=== PATIENT | female | born 1975 | race Caucasian/White ===

== ENCOUNTER 2018-06-30 18:09 | Emergency (ER) | payer SELFPAY ==
[~2018-06-30] VITALS: Ht 172.7 cm; Wt 80.0 kg
--- NOTE | 2018-06-30 18:43 | NUR ---
FIRST CONTACT WITH PT. PT SITTING UP IN [facility] NOTED. PT CO THROAT PAIN X SEVERAL DAYS. AIRWAY PATENT; SPEECH CLEAR; PT MANAGING OWN SECRETIONS. IV ESTABLISHED. PT/MOTHER UPDATED TO POC (CT/RESULTS/RECHECK) AND DEMONSTRATE UNDERSTANDING.
[2018-06-30 18:56] LABS: BASOPHILS # (AUTO) 0.03 x10^3/uL (0-0.1); BASOPHILS % (AUTO) 0 % (0-1); EOSINOPHILS # (AUTO) 0.11 x10^3/uL (0-0.4); EOSINOPHILS % (AUTO) 1 % (1-7); LYMPHOCYTES # (AUTO) 1.19 x10^3/uL (1-3.4); LYMPHOCYTES % (AUTO) 10 % (22-44); MD NO; MEAN CORPUSCULAR HEMOGLOBIN 28.1 pg (27.0-34.8); MEAN CORPUSCULAR HGB CONC 33.5 g/dL (32.4-35.8); MEAN CORPUSCULAR VOLUME 83.8 fL (80-100); MEAN PLATELET VOLUME 8.6 fL (7.4-10.4); MONOCYTES # (AUTO) 1.07 x10^3/uL (0.2-0.8); MONOCYTES % (AUTO) 9 % (2-9); NEUTROPHILS # (AUTO) 9.77 x10^3/uL (1.8-6.8); NEUTROPHILS % (AUTO) 80 % (42-75); PLATELET COUNT 228 x10^3/uL (130-400); RED CELL DISTRIBUTION WIDTH 17.5 % (9.6-15.2)
[2018-06-30] MEDS ORDERED: SODIUM CHLORIDE FLUSH 10ML SYR IVF ONE (19:00)
[2018-06-30 19:05] LABS: ALBUMIN 3.4 g/dL (3.4-5.0); ANION GAP 7 mmol/L (5-15); CHLORIDE 105 mmol/L (98-107); CREATININE 0.86 mg/dL (0.55-1.02)
--- NOTE | 2018-06-30 19:30 | NUR ---
CONTACTED CT. TECH STATES THAT PT IS IN LINE UP FOR CT. PT UPDATED
--- NOTE | 2018-06-30 20:30 | NUR ---
PT RESTING IN [facility]. AWAITING CT.
[2018-06-30] MEDS ORDERED: OMNIPAQUE 350 MG/ML, 100ML BOTTLE ONE (20:51)
[2018-06-30] MEDS ORDERED: LIDOCAINE 4% INFIL ONE (21:30)
[2018-06-30] MEDS ORDERED: ONDANSETRON 2MG/ML, 2ML IVPush ONE (21:30)
[2018-06-30] MEDS ORDERED: HYDROmorphone 2 MG/ML, 1ML IVPush PRN (21:30)
[2018-06-30] MEDS ORDERED: BENZOCAINE 20% SPRAY 0.5ML TP ONE (21:30)
[2018-06-30] MEDS ORDERED: ONDANSETRON 2MG/ML, 2ML ONE (21:31)
[2018-06-30] MEDS ORDERED: HYDROmorphone 1 MG/ML, 1ML VIAL ONE (21:31)
[2018-06-30] MEDS ORDERED: BENZOCAINE 20% SPRAY 0.5ML ONE (21:31)
--- NOTE | 2018-06-30 21:41 | NUR ---
PT MEDICATED PER EMAR. ROOM/PT PREP'D FOR I&D. PT ON 2L O2 BY NC FOR SUPPORT. NO EVIDENCE OF AIRWAY INVOLVEMENT. SPEECH CLEAR; PT MANAGING OWN SECRETIONS.
[2018-06-30] MEDS ORDERED: LIDOCAINE-MPF 1%, 2ML ONE (21:45)
[2018-06-30] MEDS ORDERED: AMPICILLIN/SULBACTAM 3 GM in SODIUM CHLORIDE 0.9% 100 ML IV ONE (23:00)
--- NOTE | 2018-06-30 23:27 | NUR ---
DC EDUCATION PROVIDED, PT DEMONSTRATES UNDERSTANDING. PT AMBULATED STEADILY TO DC WITH RN AND MOTHER. MOTHER TO TRANSPORT PT HOME.
[2018-06-30 23:28] VITALS: BP 117/60
== END 2018-06-30 23:29 | disposition home or self-care (01) ==
LOC: ED 22:45
DX: J36 Peritonsillar abscess (principal); F17.200 Nicotine dependence, unspecified, uncomplicated
CPT/HCPCS: 36415; 42700; 70491; 80048; 82040; 85025; 87081; 87880; 96365; 96375; 99284; J0295; J1170; J2405; Q9967

== ENCOUNTER 2019-04-19 16:02 | Emergency (ER) | payer MEDICAID ==
[~2019-04-19] VITALS: Ht 170.2 cm; Wt 103.1 kg
[2019-04-19 16:56] VITALS: BP 139/69
== END 2019-04-19 18:07 | disposition home or self-care (01) ==
LOC: ED 17:30
DX: G89.11 Acute pain due to trauma (principal); M54.5 Low back pain; F17.200 Nicotine dependence, unspecified, uncomplicated; X58.XXXA Exposure to other specified factors, initial encounter; Y93.89 Activity, other specified; Y92.89 Other specified places as the place of occurrence of the external cause; Y99.8 Other external cause status
CPT/HCPCS: 72110; 99283